=== PATIENT | male | born 1995 | race Caucasian/White ===

== ENCOUNTER 2024-09-08 14:22 | Outpatient (AMB) | payer OTHER, SELFPAY ==
--- NOTE | 2024-09-08 14:30 | A.OFFPC_ITS ---
Vital Signs 09/08/24 14:31 Height 5 ft 9.5 in Weight 222 lb BMI 32.3 BP 112/70 Blood Pressure Location Lt brachial Position Sitting Pulse 86 Pulse Source Pulse Oximeter Pulse Oximetry (%) 98 Oxygen Delivery Method Room Air Intake Visit Reasons: establish care Intake Note: Patient is a new patient here to establish care for Depression, Anxiety, ADD. Transferring care from [facility]. Medical records have been requested and have not received. Gericare Aide Teacher Required: No Collision Repair Technician: Not Required per policy Accompanied by: Self / Same As Patient Allergies amoxicillin Allergy (Intermediate, Verified 09/08/24 14:50) Hives aripiprazole [From Abilify] Adverse Reaction (Intermediate, Verified 09/08/24 14:50) Insomnia sertraline [From Zoloft] Adverse Reaction (Intermediate, Verified 09/08/24 14:50) altered mental state Medication List - Last Reconciled 09/08/24 by Marija Vivas PA-C aripiprazole 5 mg PO DAILY Tobacco use date assessed: 09/08/24 Dental Screening Dental Screen Date: 09/08/24 Did you have a dental visit in the last 12 months?: No Did you have a dental problem in the last 6 months where you did not have access to dental care?: No Was dental information given to patient?: No HPI establish care HPI Details 29-year-old male coming to the office fo r the 1st time. Patient tells us today he was previously being seen by PCP but has not been seen in over 5 years. He has a history of anxiety and depression and follows with a counselor through [facility]. He was supposed to be set up to with their psychiatrist but has not yet had an appointment. He would like a different medication for anxiety and depression as he has tried Abilify in the past without good relief. He also mentions having low back pain after an injury 6 weeks ago. Patient was carrying a generator when it slipped and he felt a sharp twinge in his back followed by pain that radiated down the left leg and up into the thoracic spine. He was evaluated in the ED and given muscle relaxer and discharged home. Patient also mentions having hard stools and did have 1 episode of blood in the stool after straining to have a bowel movement but has not had any recurrence. 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 1. Little interest or pleasure in doing things: more than half the days 2. Feeling down, depressed, or hopeless: several days 3. Trouble falling or staying asleep, or sleeping too much: several days 4. Feeling tired or having little energy: several days 5. Poor appetite or overeating: several days 6. Feeling bad about yourself - or that you are a failure or have let yourself or your family down: several days 7. Trouble concentrating on things, such as reading the newspaper or watching television: several days 8. Moving or speaking so slowly that other people could have noticed. Or the opposite - being so fidgety or restless that you have been moving around a lot more than usual: several days 9. Thoughts that you would be better off or of hurting yourself in some way: several days Total score: 10 Depression Screening Interpretation: Positive Depression Screening Follow-up: Existing condition and New Medication prescribed Depression Screening Done: Yes 96825 - PHQ-9 Billing: Yes Source: Developed by Drs. Ilir Cox, Evelyne Ac, Calvin Scott and colleagues, with an educational grazyna from [employer]. Thrive Questionnaire Date Thrive assessed: 09/08/24 I am a: Patient What is your living situation today?: I have a steady place to live Within the past 12 months, did the food you bought not last and you didn't have the money to get more?: Never true Within the past 12 months, did you worry whether your food would run out before you got money to buy more?: Never true Do you have trouble paying for medicines?: No Do you have trouble getting transportation to medical appointments?: No Do you have trouble paying your heating and electricity bill?: No Do you have trouble taking care of your child, family member or friend?: No Do you have trouble with day-to-day activities such as bathing, preparing meals, shopping, managing finances, etc.?: No Are you currently unemployed and looking for a job?: No Are you interested in more education?: No Please select the resources that you would like help with: None Currently or been in a relationship where the following occur: No concerns reported THRIVE Score: 0 AUDIT C Alcohol Use Questionnaire (AUDIT-C) 1. How often do you have a drink containing alcohol?: Monthly or less 2. How many drinks containing alcohol do you have on a typical day when you are drinking?: 3 or 4 3. How often do you have six or more drinks on one occasion?: Less than monthly Total Score: 3 RENE-7 AMB Questionnaire RENE-7 Date RENE - 7 assessed: 09/08/24 Feeling nervous, anxious, or on edge: 1 = Several days Not being able to stop or control worryin = Several days Worrying too much about different things: 1 = Several days Trouble relaxin = Several days Being so restless that it is hard to sit still: 1 = Several days Becoming easily annoyed or irritable: 1 = Several days Feeling afraid as if something awful might happen: 1 = Several days Total RENE-7 score (0-4 normal; 5-9 mild; 10-14 moderate; 15-21 severe): 7 Source: Developed by Drs. Ilir Cox, Evelyne Ac, Calvin Scott and colleagues, with an educational grazyna from [employer]. RENE-7 Assessment Billing RENE-7 Assessment Tool: RENE-7 Assessment 89419 Review of Systems Const Denies body aches, Denies chills, Denies fever(s), Denies headache(s) and Denies poor appetite Eyes Reports no additional complaints ENT Denies headache(s) Card Denies chest pain, Denies lightheadedness and Denies dyspnea Resp Denies cough and Denies dyspnea GI Reports constipation, Denies diarrhea, Denies nausea and Denies vomiting Reports no additional complaints Musc Denies abnormal gait and Reports back pain Skin/Breast Reports system reviewed and no additional complaints, except as documented Neuro Denies abnormal gait and Denies headache(s) Psych Reports no additional complaints Physical exam (Primary Care) BMI result Body Mass Index 32.3 Tobacco/Smoking Status: Tobacco use Status Patient Tobacco Use Status Never used Tobacco 09/08/24 14:30 Depression Screening Interpretation: Positive Depression Screening Follow-up: Existing condition and New Medication prescribed Currently or been in a relationship where the following occur: No concerns reported Const General: cooperative, healthy appearing, comfortable and no acute distress Orientation/consciousness: patient oriented x3 HENMT Head: Yes normocephalic Ears: hearing grossly normal bilaterally General nose exam: Normal external nose present Eyes General: appearance normal, both eyes and all related structures Conjunctivae: conjunctivae normal Neck Neck: Yes full ROM and Yes no lymphadenopathy Resp Effort & Inspection: normal respiratory effort Auscultation: clear to auscultation bilaterally, no crackles, no rales, no rhonchi and no wheezes Cardio Rate: regular rate Rhythm: regular rhythm Back/Spine/Pelvis Other: Pain to palpation left lumbar paraspinal muscles. Negative straight leg raise bilaterally Skin General skin exam: no rashes or lesions noted Neuro General: patient oriented x3 Gait exam (Neuro): Normal gait present Extrem General: Yes normal to inspection, Yes full ROM and No edema Psych Affect: normal affect Attitude: cooperative Insight: Good insight present (Psych) Judgement: Good judgement present (Psych) Coding Level of Care Code New Pt Level 4 (30011) Diagnoses Constipation K59.00 Depression F32.A Anxiety F41.9 Low back pain M54.50 Additional Codes RENE-7 Assessment Billing - RENE-7 Assessment Tool: RENE-7 Assessment 44791 ([id number]) PHQ-9 - 39294 - PHQ-9 Billing: Yes ([id number]) Assessment & Plan Assessment & Plan (1) Constipation: Code(s): K59.00 - Constipation, unspecified Category: Medical Plan: Patient complaining of hard stools and straining with having a bowel movement. He does not drink plenty of water and has low fiber intake. Advised to increase water intake and use [id number] fiber supplement. Patient did have 1 episode of blood in the stool after straining without recurrence. Continue to monitor symptoms. (2) Depression: Code(s): F32.A - Depression, unspecified Category: Medical Plan: Patient complaining of depression and has a history of depression previously treated with Abilify however patient had side effects of this medication and would like to try Wellbutrin as it was recommended him. Discussed with patient side effects of this medication and we will start on Wellbutrin b.i.d. and follow up in 3 months. (3) Anxiety: Code(s): F41.9 - Anxiety disorder, unspecified Category: Medical Plan: Patient complaining of anxiety and has a history of depression previously treated with Abilify however patient had side effects of this medication and would like to try Wellbutrin as it was recommended him. Discussed with patient side effects of this medication and we will start on Wellbutrin b.i.d. and fol low up in 3 months. (4) Low back pain: Code(s): M54.50 - Low back pain, unspecified Category: Medical Plan: Patient complaining of low back pain after a fall 6 weeks ago. He was initially evaluated in the ED and diagnosed with muscle strain however he does continue to have low back pain and tenderness that does not radiate down the leg. Negative straight leg raise today. Ordered for back x-ray for further evaluation and referred to PT. Plan This note was constructed using voice recognition software. While every effort has been made to ensure accuracy and boiler tender, still areas may have been included sometimes these areas may affect the content or meeting of the given symptoms. Total time spent caring for the patient today was 30 minutes. This includes time spent before the visit reviewing the chart, time spent during the visit, and time spent after the visit and documentation. Orders: Orders XR lumbar spine 2-3V Today M54.50 - Low back pain, unspecified Comprehensive Met. Panel Today Z00.00 - Encounter for general adult medical examination without abnormal findings Complete Blood Count Auto Diff Today Z00.00 - Encounter for general adult medical examination without abnormal findings TSH reflex Free T4 Today Z00.00 - Encounter for general adult medical examination without abnormal findings Vitamin B12 and Folate Today Z00.00 - Encounter for general adult medical examination without abnormal findings Vitamin D 25-OH Total Today Z00.00 - Encounter for general adult medical examination without abnormal findings Free T4 (Free Thyroxine) Today Z00.00 - Encounter for general adult medical examination without abnormal findings PT Evaluation and Treatment Today M54.50 - Low back pain, unspecified Lipid Panel Today Z13.220 - Encounter for screening for lipoid disorders Medications: New bupropion HCl SR (Wellbutrin SR) 100 mg PO BID 60 tabs 3RF
[2024-09-08 14:31] VITALS: BP 112/70; PULSE 86; O2SAT 98; BMI 32.3
== END 2024-09-08 15:10 | disposition home or self-care (01) ==
DX: K59.00 Constipation, unspecified (principal); F32.A Depression, unspecified; F41.9 Anxiety disorder, unspecified; M54.50 Low back pain, unspecified

== ENCOUNTER → 2024-09-08 14:22 | Outpatient (BNVA) | payer OTHER, SELFPAY | DX: K59.00 Constipation, unspecified (principal); F32.A Depression, unspecified; F41.9 Anxiety disorder, unspecified; M54.50 Low back pain, unspecified | CPT/HCPCS: 96127; 99202 ==

== ENCOUNTER 2024-12-07 14:48 | Outpatient (AMB) | payer OTHER, SELFPAY ==
[2024-12-07 14:51] VITALS: BP 122/68; PULSE 74; O2SAT 98; BMI 31.5
--- NOTE | 2024-12-07 14:51 | A.OFFPC_ITS ---
Vital Signs 12/07/24 14:51 Height 5 ft 9.5 in Weight 216 lb 6 oz BMI 31.5 BP 122/68 Blood Pressure Location Lt brachial Position Sitting Pulse 74 Pulse Source Pulse Oximeter Pulse Oximetry (%) 98 Oxygen Delivery Method Room Air Intake Visit Reasons: annual exam Logistics Lead Required: No Accompanied by: Self / Same As Patient Allergies amoxicillin Allergy (Intermediate, Verified 12/07/24 15:12) Hives aripiprazole [From Abilify] Adverse Reaction (Intermediate, Verified 12/07/24 15:12) Insomnia sertraline [From Zoloft] Adverse Reaction (Intermediate, Verified 12/07/24 15:12) altered mental state Medication List - Last Reconciled 12/07/24 by Marija Vivas PA-C No Known Home Meds Tobacco use date assessed: 12/07/24 Dental Screening Dental Screen Date: 12/07/24 Did you have a dental visit in the last 12 months?: No Did you have a dental problem in the last 6 months where you did not have access to dental care?: No Was dental information given to patient?: No HPI annual exam HPI Details 29-year-old male with past medical histo ry of anxiety, depression and low back pain last seen 08/2024 coming in for annual exam. He tells us today he did not see improvement in depression and anxiety with Welbutrin and continues to have depressive symptoms possibly related to recent life stress. He has seen [facility] in the past for therapist and did not find this helpful. 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 1. Little interest or pleasure in doing things: more than half the days 2. Feeling down, depressed, or hopeless: several days 3. Trouble falling or staying asleep, or sleeping too much: several days 4. Feeling tired or having little energy: several days 5. Poor appetite or overeating: several days 6. Feeling bad about yourself - or that you are a failure or have let yourself or your family down: several days 7. Trouble concentrating on things, such as reading the newspaper or watching television: several days 8. Moving or speaking so slowly that other people could have noticed. Or the opp osite - being so fidgety or restless that you have been moving around a lot more than usual: several days 9. Thoughts that you would be better off or of hurting yourself in some way: several days Total score: 10 Depression Screening Interpretation: Positive (referral placed to psych and counseling ) Depression Screening Follow-up: Existing condition Depression Screening Done: Yes 42358 - PHQ-9 Billing: Yes Source: Developed by Drs. Ilir Cox, Evelyne Ac, Calvin Scott and colleagues, with an educational grazyna from [employer]. Thrive Questionnaire Date Thrive assessed: 12/07/24 I am a: Patient What is your living situation today?: I have a steady place to live Within the past 12 months, did the food you bought not last and you didn't have the money to get more?: Never true Within the past 12 months, did you worry whether your food would run out before you got money to buy more?: Never true Do you have trouble paying for medicines?: No Do you have trouble getting transportation to medical appointments?: No Do you have trouble paying your heating and electricity bill?: No Do you have trouble taking care of your child, family member or friend?: No Do you have trouble with day-to-day activities such as bathing, preparing meals, shopping, managing finances, etc.?: No Are you currently unemployed and looking for a job?: No Are you interested in more education?: No Please select the resources that you would like help with: None Currently or been in a relationship where the following occur: No concerns reported THRIVE Score: 0 AUDIT C Alcohol Use Questionnaire (AUDIT-C) 1. How often do you have a drink containing alcohol?: Monthly or less 2. How many drinks containing alcohol do you have on a typical day when you are drinking?: 3 or 4 3. How often do you have six or more drinks on one occasion?: Less than monthly Total Score: 3 RENE-7 AMB Questionnaire RENE-7 Date RENE - 7 assessed: 12/07/24 Feeling nervous, anxious, or on edge: 1 = Several days Not being able to stop or control worryin = Several days Worrying too much about different things: 1 = Several days Trouble relaxin = Several days Being so restless that it is hard to sit still: 1 = Several days Becoming easily annoyed or irritable: 1 = Several days Feeling afraid as if something awful might happen: 1 = Several days Total RENE-7 score (0-4 normal; 5-9 mild; 10-14 moderate; 15-21 severe): 7 Source: Developed by Drs. Ilir Cox, Evelyne Ac, Calvin Scott and colleagues, with an educational grazyna from [employer]. RENE-7 Assessment Billing RENE-7 Assessment Tool: RENE-7 Assessment 93365 Review of Systems Const Denies body aches, Denies fatigue, Denies fever(s), Denies headache(s) and Rafael es weakness Eyes Reports no additional complaints and Denies change in vision ENT Denies dysphagia, Denies dizziness, Denies facial pain, Denies headache(s) and Denies odynophagia Card Denies chest pain, Denies syncope, Denies irregular heart rhythm, Denies lightheadedness and Denies dyspnea Resp Denies cough and Denies dyspnea GI Denies abdominal pain, Denies constipation, Denies dysphagia, Denies dyspepsia, Denies diarrhea, Denies nausea, Denies odynophagia and Denies vomiting Denies dysuria, Denies urinary frequency, Denies urinary hesitancy and Denies urinary urgency Musc Reports back pain (has improved ) Skin/Breast Reports system reviewed and no additional complaints, except as documented Neuro Denies dizziness, Denies syncope, Denies headache(s) and Denies weakness Psych Reports no additional complaints Endo Denies fatigue Physical exam (Primary Care) Vital Signs: Last Vital Signs Pulse 74 12/07/24 14:51 BP 122/68 12/07/24 14:51 Pulse Ox 98 12/07/24 14:51 Oxygen Delivery Method Room Air 12/07/24 14:51 BMI result Body Mass Index 31.5 Tobacco/Smoking Status: Tobacco use Status Tobacco use date assessed 12/07/24 12/07/24 14:53 Patient Tobacco Use Status Current someday Tobacco 12/07/24 14:53 Tobacco use type Cigarette 12/07/24 14:53 e-Cigarette/Vaping Use Currently Using 12/07/24 14:53 PHQ-9: PHQ-9 Score PHQ-9: Total score 10 12/07/24 14:56 Depression Screening Interpretation: Positive (referral placed to psych and counseling ) Depression Screening Follow-up: Existing condition Thrive Assessment: Date of Thrive Assessment Date Thrive assessed 12/07/24 12/07/24 14:53 Currently or been in a relationship where the following occur: No concerns reported Const General: cooperative, healthy appearing, comfortable and no acute distress Orientation/consciousness: patient oriented x3 HENMT Head: Yes normocephalic Ears: hearing grossly normal bilaterally, external ears normal, TM's normal bilaterally and EAC's normal General nose exam: Normal external nose present Face and sinus: Yes normal facial exam and Yes sinuses nontender Mouth: Normal oral and palatal mucosa present and tongue normal Throat: Yes posterior oropharynx normal Eyes General: appearance normal, both eyes and all related structures Conjunctivae: conjunctivae normal Pupils: Equal, round and reactive pupils present EOM: EOMs intact bilaterally and No Nystagmus present Neck Neck: Yes normal visual inspection, Yes full ROM and Yes no lymphadenopathy Chest Chest palpation & inspection: normal inspection of the chest Resp Effort & Inspection: normal respiratory effort Auscultation: clear to auscultation bilaterally, no crackles, no rales, no rhonchi, no wheezes and breath sounds present Cardio Rate: regular rate Rhythm: regular rhythm Peripheral pulses: radial pulses present and dorsalis pedis present GI Inspection: Yes normal to inspection and No Abdominal wall edema Palpation (GI): Soft to palpation, not firm and nontender Auscultation: normal bowel sounds Rectal Exam - Male: Yes deferred General: Yes no CVA tenderness Back/Spine/Pelvis Back: no CVA tenderness Skin General skin exam: no rashes or lesions noted Neuro General: patient oriented x3 Cranial nerves: Yes Equal, round and reactive pupils present, Yes Midline tongue present, Yes Ability to bilaterally elevate shoulders present and No Nystagmus present Gait exam (Neuro): Normal gait present Extrem General: Yes normal to inspection, Yes full ROM, No no pedal edema and No edema Psych Speech and movement: Normal speech and movement present Affect: normal affect Insight: Good insight present (Psych) Judgement: Good judgement present (Psych) Coding Level of Care Code Est Pt Prev Care 18-39y(77302) Diagnoses Tobacco use Z72.0 Constipation K59.00 Depression F32.A Anxiety F41.9 Low back pain M54.50 Annual physical exam Z00.00 Vasectomy evaluation Z30.09 Insomnia G47.00 Additional Codes RENE-7 Assessment Billing - RENE-7 Assessment Tool: RENE-7 Assessment 43642 ([id number]) PHQ-9 - 02073 - PHQ-9 Billing: Yes ([id number]) Assessment & Plan Assessment & Plan (1) Tobacco use: Code(s): Z72.0 - Tobacco use Category: Social Hx Plan: Smoking cigarettes and the use of tobacco can be harmful. We discussed the importance of stopping and options to aid in smoking cessation. (2) Constipation: Code(s): K59.00 - Constipation, unspecified Category: Medical Plan: Patient complaining of hard stools and straining with having a bowel movement. He does not drink plenty of water and has low fiber intake. Advised to increase water intake and use [id number] fiber supplement. Patient did have 1 episode of blood in the stool after straining without recurrence. Continue to monitor symptoms. Has not had recurrence. (3) Depression: Code(s): F32.A - Depression, unspecified Category: Medical Plan: Patient was started on Wellbutrin at his last visit and did not find this helpful. Plan to refer to outpatient psych clinic and counseling for further evaluation and treatment. (4) Anxiety: Code(s): F41.9 - Anxiety disorder, unspecified Category: Medical Plan: Patient was started on Wellbutrin at his last visit and did not find this helpful. Plan to refer to outpatient psych clinic and counseling for further evaluation and treatment. (5) Low back pain: Code(s): M54.50 - Low back pain, unspecified Category: Medical Plan: Patient complaining of low back pain after a fall 6 weeks ago. He was initially evaluated in the ED and diagnosed with muscle strain however he does continue to have low back pain and tenderness that does not radiate down the leg. At his last visit, Ordered for back x-ray for further evaluation and referred to PT. Patient feels the pain has been improving and is declining PT or XR at this time. (6) Annual physical exam: Code(s): Z00.00 - Encounter for general adult medical examination without abnormal findings Category: Medical Plan: Patient is up-to-date on all recommended routine screenings and vaccinations for his age. Ordered for updated blood work and reminded patient to have these done before next visit so they can be reviewed. Healthy diet and regular exercise is encouraged. (7) Vasectomy evaluation: Code(s): Z30.09 - Encounter for other general counseling and advice on contraception Category: Medical Plan: Referral was placed to the Urologist today. (8) Insomnia: Code(s): G47.00 - Insomnia, unspecified Category: Medical Plan: Plan to start on Trazodone as needed for sleep and follow up in 2 months for re- evaluation. Plan The detailed plan includes managing the current presentation of back pain with supportive measures, such as the use of heating pads and attention to posture. I have ordered fasting blood work to check overall health indicators given the wellness aspect of the visit. The importance of smoking cessation was highlighted, considering its influence on the patient's health status. Further investigation may follow based on ongoing symptoms and future visits. This note was constructed using voice recognition software. While every effort has been made to ensure accuracy and intermodal owner operator truck driver, still areas may have been included sometimes these areas may affect the content or meeting of the given symptoms. Total time spent caring for the patient today was 30 minutes. This includes time spent before the visit reviewing the chart, time spent during the visit, and time spent after the visit and documentation. Orders: Referrals Psychiatry Outpatient Consultation Service F32.A - Depression, unspecified, F41.9 - Anxiety disorder, unspecified Counseling Referral F32.A - Depression, unspecified, F41.9 - Anxiety disorder, unspecified Urology Referral Z30.09 - Encounter for other general counseling and advice on contraception Medications: New trazodone 50 mg PO BEDTIME 30 tabs 1RF Discontinued bupropion HCl SR Discontinued Reason: Patient no longer taking 100 mg PO BID 180 tabs 1RF
--- OUTSIDE RECORDS SUMMARY | 2024-12-07 17:27 | XMS_ITS | Clinical Summary ---
Author Organization [facility] Address [address] [place] [address] Phone Care Team Providers Care Yeast Maker Name Role Phone Marija Vivas Primary Care Provider [phone] Allergies Active Allergy Reactions Criticality Noted Date Comments Amoxicillin 07/20/2024 Medications aripiprazole (ABILIFY ORAL) Take by mouth. Active dexAMETHasone (DECADRON) 4 mg tablet Take 1 tablet (4 mg total) by mouth 2 (two) times a day for 10 doses. 10 each 07/20/2024 Active methocarbamoL (ROBAXIN) 750 mg tablet Take 1 tablet (750 mg total) by mouth 4 (four) times a day for 20 doses. 20 each 07/20/2024 Active albuterol HFA (PROAIR HFA ; PROVENTIL HFA ; VENTOLIN HFA) 90 mcg/actuation inhalerIndicatio ns:Influenza A Inhale 1-2 puffs by mouth every 6 (six) hours if needed for wheezing. 18 each 10/07/2024 Active Encounters Date Type Department Care Team Description 10/07/2024 6:30 PM EST - 10/07/2024 7:26 PM EST Emergency [facility] Emergency [address] [place] [address] Influenza A (Primary Dx) Discharge Disposition: Home or Self Care from Last 3 Months Medical History Medical History Date Comments Anxiety Depression Kidney calculi Social History Tobacco Use Types Packs/Day Years Used Date Smoking Tobacco: Some Days Cigarettes Smokeless Tobacco: Never Tobacco Cessation:Ready to Q uit: Not Asked; Counseling Given: Not Answered Alcohol Use Standard Drinks/Week Comments Never 0 (1 standard drink = 0.6 oz pur e alcohol) Sex and Gender Information Value Date Recorded Sex Assigned at Male 10/07/2024 6:41 PM EST Legal Sex Male 7:06 AM EST Gender Identity Male 10/07/2024 6:41 PM EST Sexual Orientation Choose not to disclose 2024 6:41 PM EST Obstetrics History Last Filed Vital Signs Vital Sign Reading Time Taken Comments Blood Pressure 112/90 10/07/2024 6:00 PM EST Pulse 102 10/07/2024 7:10 PM EST Temperature 37.3 ??C (99.1 ??F) 10/07/2024 7:10 PM ES T Respiratory Rate 20 10/07/2024 7:10 PM EST Oxygen Saturation 98% 10/07/2024 7:10 PM EST Inhaled Oxygen Concentration - - Weight 97.5 kg (215 lb) 10/07/2024 6:00 PM EST Height 182.9 cm (6') 10/07/2024 6:00 PM EST Body Mass Index 29.16 10/07/2024 6:00 PM EST Plan of Treatment Health Maintenance Due Date Last Done Comments Hepatitis B Vaccines (1 of 3 - 19+ 3-dose series) 2013 Pneumococcal Vaccine: Pediatrics (0 to 5 Years) and At-Risk Patients (6 to 64 Years) (1 of 2 - PCV) 2013 COVID-19 Vaccine (2023-2 5 season) 2024 Influenza Vaccine (#1) 2024 Cholesterol Screening (Lipid Panel) 07/20/2024 Depression Screening 07/20/2024 HIV Screening 07/20/2024 Hepatitis C Screening 07/20/2024 Social Influencers of Health Screening 07/20/2024 DTaP,Tdap,and Td Vaccines (3 - Td or Tdap) 11/01/2029 11/02/2019, 02/07/2016 HIB Vaccines Aged Out No longer eligi ble based on patient's age to complete this topic HPV Vaccines Aged Out No longer eligi ble based on patient's age to complete this topic Hepatitis A Vaccines Aged Out No long er eligible based on patient's age to complete this topic IPV Vaccines Aged Out No longer eligi ble based on patient's age to complete this topic MMR Vaccines Aged Out No longer eligi ble based on patient's age to complete this topic Meningococcal ACWY Vaccine Aged Out N o longer eligible based on patient's age to complete this topic Meningococcal B Vaccine Aged Out No l onger eligible based on patient's age to complete this topic RSV Immunization Patients Under 20 months Aged Out No longer eligible b ased on patient's age to complete this topic Varicella Vaccines Aged Out No longer eligible based on patient's age to complete this topic Procedures Procedure Name Priority Date/Time Associated Diagnosis Comments XR CHEST 2 VIEWS STAT 10/07/2024 6:17 PM EST [id number], RSV, FLU A AND B QUALITATIVE RT-PCR, INTERNAL LAB STAT 10/07/2024 6:06 PM EST from Last 3 Months Results * XR Chest 2 Views (10/07/2024 6:17 PM EST) Anatomical Region Laterality Modality Body Radiographic Mery ging 10/08/2024 7:31 AM EST Impressions 10/08/2024 7:31 AM EST Unremarkable chest exam. -------- FINAL REPORT -------- Dictated By: Mario Briggs Dictated Date: 10/08/2024 07:31 ET Assigned Physician: Mario Briggs Reviewed and Electronically Signed By: Mario Briggs Signed Date: 10/08/2024 07:31 ET Workstation ID: [id number] Transcribed By: Self Edit Transcribed Date: 10/08/2024 07:31 ET Narrative 10/08/2024 7:31 AM EST Examination: Chest 2 views. CLINICAL INDICATION: SOB, chest pain and cough. COMPARISON: None. FINDINGS: The lungs are fairly well-expanded and clear acute process. The heart size and pulmonary vascularity is normal. No gross bony abnormality seen. Procedure Note Mario Briggs MD - 10/08/2024 Examination: Chest 2 views. CLINICAL INDICATION: SOB, chest pain and cough. COMPARISON: None. FINDINGS: The lungs are fairly well-expanded and clear acute process. Theheart size and pulmonary vascularity is normal. No gross bony abnormalityseen. IMPRESSION: Unremarkable chest exam. -------- FINAL REPORT -------- Dictated By: Mario Briggs Dictated Date: 10/08/2024 07:31 ET Assigned Physician: Mario Briggs Reviewed and Electronically Signed By: Mario Briggs Signed Date: 10/08/2024 07:31 ET Workstation ID: [id number] Transcribed By: Self Edit Transcribed Date: 10/08/2024 07:31 ET Cecy Medrano DO IMG XR PROCEDURES Final R esult * (ABNORMAL) [id number], RSV, Influenza A and B qualitative RT-PCR (10/07/2024 6:06 PM EST) Pathologist [facility] Influenza A PCR Detected(A) Not Detected LAB MICROBIOLOGY METHOD 10/07/2024 7:15 PM EST [facility] Influenza B PCR Not Detected Not Detected LAB MICROBIOLOGY METHOD 10/07/2024 7:15 PM EST [facility] RSV PCR Not Detected Not Detected LAB MICROBIOLOGY METHOD 10/07/2024 7:15 PM [facility] SARS COV-2 Not Detected Not Detected LAB MICROBIOLOGY METHOD 10/07/2024 7:15 PM [facility] Swab Both anterior nares / Unknown Non-blood Collection / Unknown 10/07/2024 6:06 PM EST 10/07/2024 6:15 PM EST [facility] - 10/07/2024 7:15 PM EST Disclaimer: ??Testing was performed using the [employer] GeneXpert Xpress SARS-CoV-2 _Flu_RSV PLUS PCR assay. ??The manner in which this information is used to guide patient care is the responsibility of the healthcare provider. ??Results should be correlated with the clinical history, epidemiological data, and other data available to the clinician evaluating the patient. ??Negative results do not preclude infection. ??This test has been authorized by the FDA under an Emergency Use Authorization (EUA). ??This test is only authorized for the duration of time the declaration that circumstances exist justifying the authorization of the emergency use of in vitro diagnostic tests for detection of SARS-CoV-2 virus and/or diagnosis of COVID-19 infection under section 564 (b) (1) of the Act, 21 U.S.C 360bbb-3 (b) (1), unless the authorization is terminated or revoked sooner. ?? Reference Range: Not Detected Fact sheet for Healthcare providers can be found at https://www.fda.gov/media/433411/download. ?? Fact sheet for Healthcare patients can be found at https://www.fda.gov/media/308195/download. Cecy Vazquez Medrano DO LAB MICROBIOLOGY - GENERA L ORDERABLES Final Result [facility] [address] [place] [address], [place] [phone] from Last 3 Months Insurance [facility] Care Teams Yeast Maker Relationship Specialty Start Date End Date Marija Vivas PA [address] [facility], [address] [place] [address] PCP - General 10/07/24
== END 2024-12-07 15:32 | disposition home or self-care (01) ==
LOC: HO.HMCH 14:49
DX: Z00.00 Encounter for general adult medical examination without abnormal findings (principal); Z72.0 Tobacco use; K59.00 Constipation, unspecified; F32.A Depression, unspecified; F41.9 Anxiety disorder, unspecified; M54.50 Low back pain, unspecified; Z30.09 Encounter for other general counseling and advice on contraception; G47.00 Insomnia, unspecified

== ENCOUNTER → 2024-12-07 14:48 | Outpatient (BNVA) | payer OTHER, SELFPAY | DX: Z00.00 Encounter for general adult medical examination without abnormal findings (principal); M54.50 Low back pain, unspecified; F41.9 Anxiety disorder, unspecified; F32.A Depression, unspecified; K59.00 Constipation, unspecified; G47.00 Insomnia, unspecified; F17.210 Nicotine dependence, cigarettes, uncomplicated; Z79.899 Other long term (current) drug therapy | CPT/HCPCS: 96127; 99395 ==

== ENCOUNTER 2025-01-30 12:57 | Outpatient (AMB) | payer OTHER, SELFPAY ==
--- NOTE | 2025-01-30 13:00 | A.OFFVIS_ITS ---
Intake Visit Reasons: vasectomy consult Intake Note: Patient is present for vasectomy consult Urology Medication:none Antibiotic Allergy:amoxicillin Blood Thinner:none Photographic Enlarger Operator Required: No Allergies amoxicillin Allergy (Intermediate, Verified 01/30/25 13:01) Hives aripiprazole [From Abilify] Adverse Reaction (Intermediate, Verified 01/30/25 13:01) Insomnia sertraline [From Zoloft] Adverse Reaction (Intermediate, Verified 01/30/25 13:01) altered mental state HPI Comments Details: Eddie is a very pleasant male. He is a patient of Dr. Vivas. He is seen for the following urologic condition - anxiety about health - Vasectomy evaluation Vasectomy evaluation The patient presents for vasectomy consultation. He is currently He has fathered - 1 child, with a single partner. The youngest child is - 7. His partner is aware and permissive for a vasectomy Current form of control is barrier. Currently works as well to The vasectomy may be complicated due to a history of no complicating issues, inguinal hernia repair, orchidopexy, history of orchitis, orchiectomy. Patient education has been provided via AUA video, via printed information, risks of failure, recovery time, bruising and potential pain syndrome have been stressed Discussion today focused on the presence of vasectomy and the risks, benefits and alternatives that are available. Vasectomy as intended as a permanent form of control. Printed information and literature was provided to the patient. Overall there is a one in 2500 failure rate. This can occur at any time after vasectomy. Risks were discussed highlighting hematoma, spermatocele, epididymal congestion, development of sperm antibodies, and development of chronic pain estimated between 1-5%. The procedure was reviewed in detail. Anatomical diagrams of the male genitalia were used to explain the location of the vas deferens. The vas deferens will be transected, the proximal end will be cauterized, a metal clip would be applied to separate the 2 vas deferens ends. It was explained the procedure will be done in the office and takes approximately 10-15 minutes. Less common problems that arise with vasectomy include hematoma, bleeding, allergic reaction to anesthetic, epididymal infection, epididymal congestion, scrotal discomfort, spermatic leak, spermatic granuloma and the possibility of antisperm antibodies. He understands these risks and wishes to proceed. Consent was signed at the office today. He also understands that it takes 12 weeks for sperm to fully clear the system. He will need to provide a semen sample at 12 weeks and if this is not clear a 2nd sample at 16 weeks. Medical clearance to stop using protection will only be provided if he satisfies published criteria for sperm clearance. 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 Cognitive needs: No Hearing needs: No Vision needs: No Review of Systems Const Denies chills and Denies fever(s) Card Reports no additional complaints and Denies syncope Resp Denies cough GI Denies abdominal pain and Denies heartburn Reports as per HPI and Denies change in libido Neuro Denies syncope Psych Denies change in libido Endo Denies change in libido Physical Exam Const General: cooperative, healthy appearing, comfortable and no acute distress Orientation/consciousness: patient oriented x3 HEENT Face and sinus: Yes normal facial exam Mouth: moist mucous membranes Neck Neck: Yes normal visual inspection, Yes full ROM and Yes trachea midline Chest Chest palpation & inspection: normal inspection of the chest Resp Effort & Inspection: normal respiratory effort, able to speak in complete sentences and no respiratory distress GI Inspection: Yes normal to inspection Back/Spine/Pelvis Cervical Spine: normal cervical lordosis Thoracic/Lumbar Spine: thoracic and lumbar spine normal to inspection Skin General skin exam: no rashes or lesions noted Neuro General: patient oriented x3, gait normal, tone normal and moves all extremities Extrem General: Yes normal to inspection and Yes capillary refill normal Assessment & Plan Assessment & Plan (1) Anxiety: Code(s): F41.9 - Anxiety disorder, unspecified Category: Medical Plan Schedule vasectomy Medications: New tramadol 50 mg PO Q8H PRN 7 tabs 0RF pain F41.9 - Anxiety disorder, unspecified, N43.3 - Hydrocele, unspecified diazepam Take medication after arrival at office 2 mg PO BID 1 day PRN 2 tabs 0RF anxiety F41.9 - Anxiety disorder, unspecified, R45.89 - Other symptoms and signs involving emotional state Patient Instructions: This note is constructed using voice recognition software. While every effort has been made to ensure accuracy catcher plug errors may have been included. Imaging studies, laboratory and physical exam results were discussed and reviewed in detail. No major barriers to patient understanding were identified. An opportunity to ask questions regarding the treatment plan was provided. All questions were answered. The patient expressed understanding and agreement with the above treatment plan. The patient is aware they should contact our office by phone for worsening of their current condition or the appearance of new urologic symptoms. Compliance is encouraged with any medications and followup testing that is ordered. It is a privilege to participate in the urologic care of your patient. If you have any questions or concerns regarding treatment for the above conditions, or other urologic issues, please do not hesitate to contact me. The office telephone contact is [phone]. Sincerely, Dr Aniceto Reynoso MD, [facility] - Urology Compassionate Specialist Care for the Genitourinary System Coding Level of Care Code New Pt Level 4 (13500) Diagnoses Anxiety F41.9
--- OUTSIDE RECORDS SUMMARY | 2025-01-30 14:21 | XMS_ITS | Clinical Summary ---
Author Organization [facility] Address [address] [place] [address] Phone Care Team Providers Care Cost Consultant Name Role Phone Marija Vivas Primary Care Provider [phone] Allergies Active Allergy Reactions Criticality Noted Date [...] needed for wheezing. 18 each 10/07/2024 Active Medical History Medical History Date Comments Anxiety [...] 2013 COVID-19 Vaccine (2023-2 5 season) 2024 Cholesterol Screening (Lipid Panel) 07/20/2024 Depression Screening 07/20/2024 HIV Screening 07/20/2024 Hepatitis C Screening 07/20/2024 Social Influencers of Health Screening 07/20/2024 Influenza Vaccine (Season Ended) 2025 DTaP,Tdap,and Td Vaccines (3 - Td or [...] on patient's age to complete this topic Insurance [facility] Care Teams Cost Consultant Relationship Specialty Start Date End Date Marija Vivas PA [address] [place] [address], [address] [place] [address] PCP - General 10/07/24
== END 2025-01-30 14:01 | disposition home or self-care (01) ==
LOC: HO.HUSH 12:58
PROVIDERS: Visit Provider Urology
DX: F41.9 Anxiety disorder, unspecified (principal)
CPT/HCPCS: 99204

== ENCOUNTER → 2025-01-30 12:57 | Outpatient (BNVA) | payer OTHER, SELFPAY | PROVIDERS: Visit Provider Urology | DX: N43.3 Hydrocele, unspecified (principal); Z30.09 Encounter for other general counseling and advice on contraception; F41.8 Other specified anxiety disorders | CPT/HCPCS: 99202 ==

== ENCOUNTER 2025-02-06 15:23 | Outpatient (AMB) | payer OTHER, SELFPAY ==
--- NOTE | 2025-02-06 15:24 | A.OFFPC_ITS ---
Intake Visit Reasons: f/u insomnia tele Intake Note: Patient is here to follow up on Insomnia. Cytogenetics Laboratory Manager Required: No Orthodontic Technician Assistant: Not Required per policy Accompanied by: Self / Same As Patient Allergies amoxicillin Allergy (Intermediate, Verified 02/06/25 16:03) Hives aripiprazole [From Abilify] Adverse Reaction (Intermediate, Verified 02/06/25 16:03) Insomnia sertraline [From Zoloft] Adverse Reaction (Intermediate, Verified 02/06/25 16:03) altered mental state Medication List - Last Reconciled 02/06/25 by Marija Vivas PA-C diazepam 2 mg PO BID PRN 1 day tramadol 50 mg PO Q8H PRN trazodone 50 mg PO BEDTIME Tobacco use date assessed: 02/06/25 Dental Screening Dental Screen Date: 12/07/24 HPI f/u insomnia tele HPI Details 29-year-old male with past medical histo ry of anxiety and depression last seen 11/2024 presenting via telehealth for management of depression.?At his last visit patient was referred to outpatient psych clinic. Patient tells us today he has been taking the trazodone 50 mg and feels it has been helping with the sleeping however he only sleeps about 3-4 hours per night before waking up. He states his anxiety and depression has mostly resolved since the ending of his romantic relationship. He also mentions he will be moving to [place] in the next few months. No other concerns today. Denies any side effects of the medication. 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 Ilir Cox, Evelyne Ac, Calvin Scott and colleagues, with an educational grazyna from [employer]. Review of Systems Const Denies body aches, Denies chills, Denies fever(s), Denies headache(s) and Denies poor appetite Eyes Reports no additional complaints ENT Denies dizziness and Denies headache(s) Card Denies chest pain, Denies lightheadedness and Denies dyspnea Resp Denies cough and Denies dyspnea GI Denies nausea and Denies vomiting Reports no additional complaints Musc Reports no additional complaints and Denies abnormal gait Skin/Breast Reports system reviewed and no additional complaints, except as documented Neuro Denies abnormal gait, Denies dizziness and Denies headache(s) Psych Reports no additional complaints Physical exam (Primary Care) Vital Signs: Vital signs and physical exam not performed due to nature of telehealth visit Tobacco/Smoking Status: Tobacco use Status Tobacco use date assessed 02/06/25 02/06/25 15:25 Patient Tobacco Use Status Current someday Tobacco 02/06/25 15:25 Tobacco use type Cigarette 02/06/25 15:25 e-Cigarette/Vaping Use Currently Using 02/06/25 15:25 Thrive Assessment: Date of Thrive Assessment Date Thrive assessed 09/08/24 02/06/25 15:25 Coding Level of Care Code Est Pt Level 3 (16432) Diagnoses Insomnia G47.00 Anxiety F41.9 Depression F32.A Assessment & Plan Assessment & Plan (1) Insomnia: Code(s): G47.00 - Insomnia, unspecified Category: Medical Plan: Patient feels the Trazodone has been helping for him but may need a higher dose. Plan to increase Trazodone to 100mg at this time. Patient does tell us he is [place] out of the states soon and agrees to reestablish with new PCP. I did discuss with him I would continue his prescriptions until he was able to establish care with a new primary. (2) Anxiety: Code(s): F41.9 - Anxiety disorder, unspecified Category: Medical Plan: Anxiety and depression has resolved at this time. He states the majority of his anxiety and depression was related to his romantic relationship which has now ended. Declining outpatient psych referral and counseling at this time. Follow up as needed for this concern (3) Depression: Code(s): F32.A - Depression, unspecified Category: Medical Plan: See above Plan This note was constructed using voice recognition software. While every effort has been made to ensure accuracy and grading supervisor, still areas may have been included sometimes these areas may affect the content or meeting of the given symptoms. Total time spent caring for the patient today was 20 minutes. This includes time spent before the visit reviewing the chart, time spent during the visit, and time spent after the visit and documentation. Medications: New trazodone 100 mg PO BEDTIME 90 tabs 0RF Discontinued trazodone Discontinued Reason: Patient no longer taking 50 mg PO BEDTIME 90 tabs 1RF
--- OUTSIDE RECORDS SUMMARY | 2025-02-06 18:31 | XMS_ITS | Clinical Summary ---
Author Organization [facility] Address [address] [place] [address] Phone Care Team Providers Care Process Controls Technician Name Role Phone Marija Vivas Primary Care Provider Allergies Active Allergy Reactions Criticality Noted Date [...] patient's age to complete this topic Insurance [facility] Care Teams Process Controls Technician Relationship Specialty Start Date End Date Marija Vivas PA [address] [place] [address], [address] [place] [address] PCP - General 10/07/24
== END 2025-02-06 16:32 | disposition home or self-care (01) ==
LOC: HO.HMCH 15:23
DX: G47.00 Insomnia, unspecified (principal); F41.9 Anxiety disorder, unspecified; F32.A Depression, unspecified

== ENCOUNTER → 2025-02-06 15:23 | Outpatient (BNVA) | payer OTHER, SELFPAY | DX: G47.00 Insomnia, unspecified (principal); F41.9 Anxiety disorder, unspecified; F32.A Depression, unspecified | CPT/HCPCS: 99212 ==

== ENCOUNTER 2025-05-04 15:01 | Outpatient (AMB) | payer OTHER, SELFPAY ==
--- NOTE | 2025-05-04 15:01 | MHC.OFFVIS ---
Intake Visit Reasons: vasectomy Intake Note: Patient is present for vasectomy Urology Medication:valium Antibiotic Allergy:amoxicillin Blood Thinner:none Diamond Grinder Required: No Accompanied by: Self / Same As Patient Allergies amoxicillin Allergy (Intermediate, Verified 05/04/25 15:02) Hives aripiprazole (From Abilify) Adverse Reaction (Intermediate, Verified 05/04/25 15:02) Insomnia sertraline (From Zoloft) Adverse Reaction (Intermediate, Verified 05/04/25 15:02) altered mental state HPI Comments Details: Eddie is a very pleasant male. He is a patient of Dr. Vivas. He is seen for the following urologic condition - anxiety about health - Vasectomy procedure Vasectomy procedure The patient presents for vasectomy consultation. He is currently He has fathered - 1 child, with a single partner. The youngest child is - 8. His partner is aware and permissive for a vasectomy Current form of control is barrier. 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 Cognitive needs: No Hearing needs: No Vision needs: No Review of Systems Const Denies chills and Denies fever(s) Card Reports no additional complaints and Denies syncope Resp Denies cough GI Denies abdominal pain and Denies heartburn Reports as per HPI and Denies change in libido Neuro Denies syncope Psych Denies change in libido Endo Denies change in libido Physical Exam Const General: cooperative, healthy appearing, comfortable and no acute distress Orientation/consciousness: patient oriented x3 HEENT Face and sinus: Yes normal facial exam Mouth: moist mucous membranes Neck Neck: Yes normal visual inspection, Yes full ROM and Yes trachea midline Chest Chest palpation & inspection: normal inspection of the chest Resp Effort & Inspection: normal respiratory effort, able to speak in complete sentences and no respiratory distress GI Inspection: Yes normal to inspection Back/Spine/Pelvis Cervical Spine: normal cervical lordosis Thoracic/Lumbar Spine: thoracic and lumbar spine normal to inspection Skin General skin exam: no rashes or lesions noted Neuro General: patient oriented x3, gait normal, tone normal and moves all extremities Extrem General: Yes normal to inspection and Yes capillary refill normal Office Procedures Vasectomy Details: Preoperative diagnosis: Anxiety regarding Postoperative diagnosis: Anxiety regarding unplanned Procedure: Bilateral vasectomy Informed consent had been completed. Preoperative and postoperative instructions were provided to the patient. The patient has transportation home identified at the completion of the procedure. Anti-anxiolytic prescription medication had been taken after consent verification and all questions answered. A limited amount of pain medication was also provided. The penis was elevated using a rubber band that was attached to the patient's shirt. Both vasa were palpated through the skin using a 3 finger technique and the penoscrotal junction was prepped with Betadine. After Betadine application the left vas was elevated using a 3 finger grasping technique. 1% lidocaine was used to create a subdermal bubble. Further anesthetic was then advanced using the 25-gauge needle along the vasa in a proximal fashion. Approximately 2 minutes were allowed to for local anesthetic uptake. Using the sharp spreading instrument the scrotal skin was spread longitudinally in line with the vasa until the subdermal layer had been divided. The vasa was then elevated from the scrotum using a ring clamp. Care was taken to elevate the superior portion of the vasa by rotating the ring clamp in a caudad direction. The battery powered cautery was used to divide the vasal sheath in a longitudinal direction on the exposed vasa and to strip the vasal sheath from the vasa. The sharp spreading instrument was used to further expose the vas within the vasal sheath. A 2nd narrower ring clamp was placed on the exposed vas and used to lift the vas from the vasal sheath. The cautery was used to divide vasal attachments and allow full exposure of a small loop of vasa. The sharp spreading instrument was then used to create a tunnel under the vasa and spread to allow the blood vessels of the vasa to retract from the vasa. A mosquito clamp was placed on the proximal portion of the vas. The battery-powered cautery was used to make a partial division in the proximal vas and then inserted in order to cauterize the proximal end of the vas. This was then cut and allowed to retract into the vasal sheath. The mosquito was then used to twist the vasa 180 degrees creating a fascial interposition as the proximal portion of the vas retracted in the vasal sheath. Using a 4-0 chromic suture the fascial interposition was sutured closed. The distal portion of the vas was then cut in order to obtain a segment of vasa. An open distal vas is preferred for minimizing postprocedure pain. The vasa were allowed to retract back into the scrotum. A small snap was then used to approximate the skin edges and allow hemostasis without placement of a suture. A similar procedure was repeated on the right side. He tolerated the procedure well. Triple antibiotic was applied. A gauze was applied. An ice pack was applied to assist with minimizing swelling. Postoperative instructions were confirmed. He understands the need to continue to use control methods. A semen sample should be brought for inspection under the microscope in 10-12 weeks. CPT 34015 Informed consent given: Yes Informed consent signed: Yes Time out checklist: patient, procedure, site marked/identified, positioning of patient, supplies available, allergies confirmed and team agrees on procedure Anesthetic used: other Specimens: vas segments not sent to pathology 13951 - Vasectomy Office Meds lidocaine (PF) 10 mg/mL (1 %) injection solution Performing Provider: nAiceto Reynoso MD [facility] Administered by: Aniceto Reynoso MD on 05/06/25 20:56 Dose Route Admin Location Dispensed Lot Number Expiration Date [facility] Forepart Rasper 2 mL Infiltration 10 mL Total Dispensed Waste 10 mL 0 % Assessment & Plan Assessment & Plan (1) Anxiety: Code(s): F41.9 - Anxiety disorder, unspecified Category: Medical Plan 3m f/u Orders: Orders AMB Vasectomy 05/04/25 F41.9 - Anxiety disorder, unspecified Patient Instructions: This note is constructed using voice recognition software. While every effort has been made to ensure accuracy cooling pan tender errors may have been included. Imaging studies, laboratory and physical exam results were discussed and reviewed in detail. No major barriers to patient understanding were identified. An opportunity to ask questions regarding the treatment plan was provided. All questions were answered. The patient expressed understanding and agreement with the above treatment plan. The patient is aware they should contact our office by phone for worsening of their current condition or the appearance of new urologic symptoms. Compliance is encouraged with any medications and followup testing that is ordered. It is a privilege to participate in the urologic care of your patient. If you have any questions or concerns regarding treatment for the above conditions, or other urologic issues, please do not hesitate to contact me. The office telephone contact is [phone]. Sincerely, Dr Aniceto Reynoso MD, [facility] - Urology Compassionate Specialist Care for the Genitourinary System Coding Level of Care Code Procedure Only Diagnoses Anxiety F41.9 CPT Codes Office Procedure - CPT: 09401 - Vasectomy ([id number])
--- OUTSIDE RECORDS SUMMARY | 2025-05-04 15:04 | XMS_ITS | Clinical Summary ---
Author Organization [facility] Address [address] [place] [address] Phone Care Team Providers Care Earth Mover Name Role Phone Marija Vivas Primary Care Provider [phone] Allergies Active Allergy Reactions Criticality Noted Date [...] 102 10/07/2024 7:10 PM EST Temperature 37.3 C (99.1 F) 10/07/2024 7:10 PM EST Respiratory Rate 20 10/07/2024 7:10 PM EST [...] 5 Years) and At-Risk Patients (6 to 49 Years) (1 of 2 - PCV) 2013 Cholesterol Screening (Lipid Panel) 07/20/2024 HIV Screening 07/20/2024 Hepatitis C Screening 07/20/2024 Social Influencers of Health Screening 07/20/2024 Depression Screening 08/30/2024 COVID-19 Vaccine ( - 2023-2 5 season) 2025 Influenza Vaccine (#1) 2025 DTaP,Tdap,and Td Vaccines (3 - Td [...] patient's age to complete this topic Insurance [facility] [employer] Care Teams Earth Mover Relationship Specialty Start Date End Date Marija Vivas PA [address] [place] [address], [address] [place], [place] [id number] PCP - General 10/07/24
== END 2025-05-04 16:11 | disposition home or self-care (01) ==
LOC: HO.HUSH 15:02
PROVIDERS: Visit Provider Urology
DX: Z30.2 Encounter for sterilization (principal); F41.9 Anxiety disorder, unspecified
CPT/HCPCS: 55250

== ENCOUNTER → 2025-05-04 15:01 | Outpatient (BNVA) | payer OTHER, SELFPAY | PROVIDERS: Visit Provider Urology | DX: Z30.2 Encounter for sterilization (principal); F41.9 Anxiety disorder, unspecified | CPT/HCPCS: 55250; J2003 ==